=== PATIENT | female | born 1940 | race Caucasian/White ===

== ENCOUNTER 2023-06-13 16:23 | Emergency (ER) | payer MEDICARE ==
[~2023-06-13] VITALS: Ht 167.6 cm; Wt 92.1 kg
[~2023-06-13 16:23] MED LIST: BISM262T15 PO; CETI5TAB8 PO; DICY20TA32 PO; DIPH50CA37 PO; ESCI20TA PO; FLUO40CA8 PO; HYDR-3980 PO; LEVO137T PO; LORA1TAB PO; METO50TA7 PO; MG T1TAB4 PO; PANT40TA2 PO; [UNRECOGNIZED DRUG - CODE] PO
[2023-06-13 17:52] LABS: BASOPHILS % (AUTO) 0.4 % (0.0-2.0); EOSINOPHILS # (AUTO) 0.2 K/uL (0.0-0.7); EOSINOPHILS % (AUTO) 2.2 % (0.0-6.0); HEMATOCRIT 34 % (33-45); HEMOGLOBIN 10.7 g/dL (11.5-14.8); LYMPHOCYTES % (AUTO) 26.2 % (20.0-44.0); MEAN CORPUSCULAR HEMOGLOBIN 25 PG (26.0-33.0); MEAN CORPUSCULAR HGB CONC 32 g/dl (31.0-36.0); MEAN CORPUSCULAR VOLUME 79 fL (82-100); MONOCYTES # (AUTO) 0.8 K/uL (0.1-1.30); MONOCYTES % (AUTO) 10.5 % (2.0-12.0); NEUTROPHILS # (AUTO) 4.6 K/uL (1.8-8.9); NEUTROPHILS % (AUTO) 60.7 % (43.0-81.0); PLATELET COUNT (AUTO) 288 K/uL (150-450); RED BLOOD CELL COUNT(AUTO) 4.31 MIL/uL (4.0-5.2); RED CELL DISTRIBUTION WIDTH 15.4 % (11.5-15.0); WHITE BLOOD COUNT (AUTO) 7.7 K/uL (4.3-11.0)
[2023-06-13 18:08] LABS: INR 0.95 (0.91-1.10); PARTIAL THROMBOPLASTIN TIME 27.5 SEC (24.3-34.3); PROTHROMBIN TIME 10.1 SECS (9.2-11.1)
[2023-06-13 18:19] LABS: CALCIUM, SERUM 9.3 mg/dL (8.5-10.1); CREATININE 1.2 mg/dL (0.6-1.3); POTASSIUM 4.4 mmol/L (3.5-5.1)
[2023-06-13] MEDS ORDERED: OXYM15MI4 NS (18:49)
[2023-06-13 19:07] VITALS: BP 121/69; TEMP 97.9; O2SAT 98
== END 2023-06-13 19:08 | disposition home or self-care (01) ==
LOC: ER 16:26
DX: S09.90XA Unspecified injury of head, initial encounter (principal); R04.0 Epistaxis; I10 Essential (primary) hypertension; M79.7 Fibromyalgia; K21.9 Gastro-esophageal reflux disease without esophagitis; F41.9 Anxiety disorder, unspecified; F31.9 Bipolar disorder, unspecified; E03.9 Hypothyroidism, unspecified; Z88.8 Allergy status to other drugs, medicaments and biological substances; Z79.899 Other long term (current) drug therapy; W18.30XA Fall on same level, unspecified, initial encounter; Y93.89 Activity, other specified; Y92.89 Other specified places as the place of occurrence of the external cause; Y99.8 Other external cause status
CPT/HCPCS: 36415; 70450-TC; 70486-TC; 72125-TC; 80048-TC; 85025-TC; 85730-TC; 86850-TC

== ENCOUNTER 2023-07-02 09:37 | Inpatient (IN) | payer MEDICARE ==
[~2023-07-02] VITALS: Ht 167.6 cm; Wt 84.8 kg
[~2023-07-02 09:37] MED LIST changes: +OXYM15MI4 NS
[2023-07-02] MEDS ORDERED: CEFTRIAXONE 1GM BAG (ER ONLY) 50 ML IV ONE ×2 (10:00→10:02)
[2023-07-02] MEDS ORDERED: AZITHROMYCIN 500 MG in IV D5W 250 ML IV ONE (10:00)
[2023-07-02] MEDS ORDERED: ALBUTEROL FS 2.5 MG/3 ML VIAL.NEB NEB ONE (10:00)
[2023-07-02] MEDS ORDERED: methylPREDNISolone SOD SUCC 125 MG/2ML VIAL IV ONE (10:00)
[2023-07-02] MEDS ORDERED: IV NS 0.9% 500 ML BAG IV ONE (10:00)
[2023-07-02] MEDS ORDERED: IPRATROPIUM NEB FS 0.5 MG/2.5 ML AMPUL.NEB NEB ONE (10:00)
[2023-07-02] MEDS ORDERED: ACETAMINOPHEN ES 500 MG TABLET PO ONE (10:00)
[2023-07-02] MEDS ORDERED: methylPREDNISolone SOD SUCC 125 MG/2ML VIAL ONE (10:02)
[2023-07-02] MEDS ORDERED: ACETAMINOPHEN ES 500 MG TABLET ONE (10:02)
[2023-07-02] MEDS ORDERED: ATOR80TA PO (10:35)
[2023-07-02] MEDS ORDERED: ASPI-1169 PO (10:35)
[2023-07-02] MEDS ORDERED: HYDR-4303 PO (10:35)
[2023-07-02] MEDS ORDERED: CLOP75TA15 PO (10:35)
[2023-07-02 10:52] LABS: CARBON DIOXIDE 22 mmol/L (21-32); CHLORIDE 94 mmol/L (98-107); CREATININE 2.7 mg/dL (0.6-1.3); GLUCOSE 118 mg/dL (74-106); POTASSIUM 3.8 mmol/L (3.5-5.1); SODIUM SERUM 129 mmol/L (136-145); UREA NITROGEN, BLOOD 38 mg/dL (7-18)
[2023-07-02 11:03] LABS: LACTIC ACID 1.7 mmol/L (0.4-2.0)
[2023-07-02 11:06] LABS: INR 1.08 (0.91-1.10); PARTIAL THROMBOPLASTIN TIME 31.9 SEC (24.3-34.3); PROTHROMBIN TIME 11.4 SECS (9.2-11.1)
[2023-07-02 11:07] LABS: ALANINE AMINOTRANSFERASE 70 U/L (12-78); ALKALINE PHOSPHATASE 159 U/L (46-116); ASPARTATE AMINOTRANSFERASE 182 U/L (15-37); BILIRUBIN,DIRECT 0.2 mg/dL (0.0-0.2); BILIRUBIN,TOTAL 0.3 mg/dL (0.2-1.0); NT-PRO BNP 4520 pg/mL (0-125); TOTAL PROTEIN, SERUM 7.6 g/dL (6.4-8.2)
[2023-07-02 11:29] LABS: BASOPHILS # (AUTO) 0.1 K/uL (0.0-0.2); BASOPHILS % (AUTO) 1.1 % (0.0-2.0); EOSINOPHILS % (AUTO) 0.1 % (0.0-6.0); HEMATOCRIT 30 % (33-45); HEMOGLOBIN 9.6 g/dL (11.5-14.8); LYMPHOCYTES # (AUTO) 0.6 K/uL (0.8-4.8); LYMPHOCYTES % (AUTO) 4.3 % (20.0-44.0); MEAN CORPUSCULAR HEMOGLOBIN 24 PG (26.0-33.0); MEAN CORPUSCULAR HGB CONC 32 g/dl (31.0-36.0); MEAN CORPUSCULAR VOLUME 76 fL (82-100); MONOCYTES # (AUTO) 0.6 K/uL (0.1-1.30); MONOCYTES % (AUTO) 4.6 % (2.0-12.0); NEUTROPHILS # (AUTO) 11.8 K/uL (1.8-8.9); NEUTROPHILS % (AUTO) 89.9 % (43.0-81.0); PLATELET COUNT (AUTO) 268 K/uL (150-450); RED BLOOD CELL COUNT(AUTO) 3.94 MIL/uL (4.0-5.2); RED CELL DISTRIBUTION WIDTH 16.5 % (11.5-15.0); WHITE BLOOD COUNT (AUTO) 13.1 K/uL (4.3-11.0)
[2023-07-02] MEDS ORDERED: IPRATROPIUM NEB FS 0.5 MG/2.5 ML AMPUL.NEB ONE ×2 (12:01→15:22)
[2023-07-02] MEDS ORDERED: ALBUTEROL FS 2.5 MG/3 ML VIAL.NEB ONE ×2 (12:01→15:22)
[2023-07-02 12:05] VITALS: O2SAT 92
[2023-07-02 12:19] VITALS: O2SAT 98
[2023-07-02] MEDS ORDERED: CLOPIDOGREL BISULFATE 75 MG TABLET ONE (12:28)
[2023-07-02] MEDS ORDERED: MAGNESIUM HYDROXIDE 30 ML UDC PO PRN (12:30)
[2023-07-02] MEDS ORDERED: ACETAMINOPHEN 325 MG TABLET PO PRN (12:30)
[2023-07-02] MEDS ORDERED: Z GUARD REMEDY 4 OZ OINT TP PRN (12:30)
[2023-07-02] MEDS ORDERED: CLOPIDOGREL BISULFATE 75 MG TABLET PO ONE (12:30)
[2023-07-02] MEDS ORDERED: ONDANSETRON HCL/PF 4 MG/2 ML VIAL IVP PRN (12:30)
[2023-07-02] MEDS: methylPREDNISolone SOD SUCC 40 MG/ML VIAL IV SCH ×2 (13:00→17:58)
[2023-07-02] MEDS ORDERED: IPRATROPIUM NEB FS 0.5 MG/2.5 ML AMPUL.NEB NEB SCH ×2 (13:00→15:00)
[2023-07-02] MEDS ORDERED: ALBUTEROL FS 2.5 MG/0.5 ML VIAL.NEB NEB SCH (13:00)
[2023-07-02] MEDS: ENOXAPARIN SODIUM 30 MG/0.3 ML DISP.SYRIN SQ SCH (13:30)
[2023-07-02] MEDS: ALBUTEROL FS 2.5 MG/0.5 ML VIAL.NEB NEB SCH ×2 (15:00→19:59)
[2023-07-02] MEDS ORDERED: methylPREDNISolone SOD SUCC 40 MG/ML VIAL ONE (15:23)
[2023-07-02] MEDS ORDERED: ENOXAPARIN SODIUM 30 MG/0.3 ML DISP.SYRIN ONE (15:23)
[2023-07-02] MEDS: CEFEPIME 2 GM in IV D5W 100 ML IV SCH (15:37)
[2023-07-02] MEDS: IV NS 0.9% 1,000 ML IV PRN (17:58)
[2023-07-02 19:59] VITALS: O2SAT 92
[2023-07-02] MEDS: IPRATROPIUM NEB FS 0.5 MG/2.5 ML AMPUL.NEB NEB SCH (19:59)
[2023-07-02 20:14] VITALS: O2SAT 97
[2023-07-02] MEDS: MAG HYDROX/AL HYDROX/SIMETH 30 ML UDC PO PRN (20:54)
[2023-07-02] MEDS: ATORVASTATIN 40 MG TABLET PO SCH (21:34)
[2023-07-02] MEDS: HYDROCODONE/APAP 5/325MG TABLET PO PRN (21:44)
[2023-07-03] VITALS (14 sets, daily range): BP systolic 113–128; BP diastolic 63–79; TEMP 97.4–98.2; O2SAT 90–100
[2023-07-03] MEDS: IPRATROPIUM NEB FS 0.5 MG/2.5 ML AMPUL.NEB NEB SCH ×4 (02:10→20:10)
[2023-07-03] MEDS: ALBUTEROL FS 2.5 MG/0.5 ML VIAL.NEB NEB SCH ×4 (02:10→20:10)
[2023-07-03] MEDS: IV NS 0.9% 1,000 ML IV PRN (06:34)
[2023-07-03 06:55] LABS: BASOPHILS % (AUTO) 0.1 % (0.0-2.0); EOSINOPHILS % (AUTO) 0.1 % (0.0-6.0); HEMATOCRIT 25 % (33-45); LYMPHOCYTES # (AUTO) 0.6 K/uL (0.8-4.8); MEAN CORPUSCULAR HEMOGLOBIN 25 PG (26.0-33.0); MEAN CORPUSCULAR HGB CONC 32 g/dl (31.0-36.0); MEAN CORPUSCULAR VOLUME 76 fL (82-100); MONOCYTES # (AUTO) 0.4 K/uL (0.1-1.30); MONOCYTES % (AUTO) 3.2 % (2.0-12.0); NEUTROPHILS # (AUTO) 11.2 K/uL (1.8-8.9); NEUTROPHILS % (AUTO) 91.6 % (43.0-81.0); PLATELET COUNT (AUTO) 224 K/uL (150-450); RED BLOOD CELL COUNT(AUTO) 3.25 MIL/uL (4.0-5.2); RED CELL DISTRIBUTION WIDTH 16.7 % (11.5-15.0); WHITE BLOOD COUNT (AUTO) 12.2 K/uL (4.3-11.0)
[2023-07-03 07:41] LABS: ALANINE AMINOTRANSFERASE 58 U/L (12-78); ALBUMIN 1.6 g/dL (3.4-5.0); ALKALINE PHOSPHATASE 129 U/L (46-116); ASPARTATE AMINOTRANSFERASE 115 U/L (15-37); BILIRUBIN,TOTAL 0.2 mg/dL (0.2-1.0); CALCIUM, SERUM 8.6 mg/dL (8.5-10.1); CARBON DIOXIDE 25 mmol/L (21-32); CHLORIDE 97 mmol/L (98-107); GLUCOSE 157 mg/dL (74-106); MAGNESIUM 3.2 mg/dL (1.8-2.4); PHOSPHORUS 4.3 mg/dL (2.5-4.9); POTASSIUM 4.2 mmol/L (3.5-5.1); SODIUM SERUM 129 mmol/L (136-145); TOTAL PROTEIN, SERUM 6.4 g/dL (6.4-8.2); UREA NITROGEN, BLOOD 44 mg/dL (7-18)
[2023-07-03] MEDS: methylPREDNISolone SOD SUCC 40 MG/ML VIAL IV SCH ×3 (08:24→17:53)
[2023-07-03] MEDS: ASPIRIN 81 MG TAB.CHEW PO SCH (08:25)
[2023-07-03] MEDS: CLOPIDOGREL BISULFATE 75 MG TABLET PO SCH (08:25)
[2023-07-03] MEDS: METOPROLOL SUCCINATE 25 MG TAB.SR.24H PO SCH (08:25)
[2023-07-03] MEDS: LEVOTHYROXINE SODIUM 137 MCG TABLET PO SCH (08:26)
[2023-07-03 08:50] LABS: IRON, SERUM 12 ug/dl (50-175); TOTAL IRON BINDING CAPACITY 190 ug/dl (250-450)
[2023-07-03 09:16] LABS: FERRITIN 316 ng/mL (8-388)
[2023-07-03] MEDS: AZITHROMYCIN 500 MG in IV D5W 250 ML IV SCH (10:08)
[2023-07-03] MEDS: ENOXAPARIN SODIUM 30 MG/0.3 ML DISP.SYRIN SQ SCH (13:43)
[2023-07-03] MEDS: CEFEPIME 2 GM in IV D5W 100 ML IV SCH (15:38)
[2023-07-03] MEDS: GUAIFENESIN/D-METHORPHAN HB 5 ML UDC PO PRN (20:43)
[2023-07-03] MEDS ORDERED: TAMSULOSIN 0.4 MG CAP.SR.24H PO SCH (22:00)
[2023-07-03] MEDS: ATORVASTATIN 40 MG TABLET PO SCH (22:02)
[2023-07-04] VITALS (17 sets, daily range): BP systolic 123–146; BP diastolic 57–88; TEMP 96.5–97.6; O2SAT 80–99
[2023-07-04] MEDS: HYDROCODONE/APAP 5/325MG TABLET PO PRN (00:03)
[2023-07-04] MEDS: ALBUTEROL FS 2.5 MG/0.5 ML VIAL.NEB NEB SCH ×4 (02:03→19:16)
[2023-07-04] MEDS: IPRATROPIUM NEB FS 0.5 MG/2.5 ML AMPUL.NEB NEB SCH ×4 (02:03→19:15)
[2023-07-04] MEDS: IV NS 0.9% 1,000 ML IV PRN ×2 (03:29→23:55)
[2023-07-04 07:14] LABS: HEMATOCRIT 26 % (33-45); HEMOGLOBIN 8.1 g/dL (11.5-14.8); LYMPHOCYTES # (AUTO) 0.5 K/uL (0.8-4.8); LYMPHOCYTES % (AUTO) 3.1 % (20.0-44.0); MEAN CORPUSCULAR HEMOGLOBIN 24 PG (26.0-33.0); MEAN CORPUSCULAR HGB CONC 31 g/dl (31.0-36.0); MEAN CORPUSCULAR VOLUME 76 fL (82-100); MONOCYTES # (AUTO) 0.6 K/uL (0.1-1.30); MONOCYTES % (AUTO) 3.9 % (2.0-12.0); NEUTROPHILS # (AUTO) 15.6 K/uL (1.8-8.9); PLATELET COUNT (AUTO) 317 K/uL (150-450); RED BLOOD CELL COUNT(AUTO) 3.37 MIL/uL (4.0-5.2); RED CELL DISTRIBUTION WIDTH 17.2 % (11.5-15.0); WHITE BLOOD COUNT (AUTO) 16.7 K/uL (4.3-11.0)
[2023-07-04 07:46] LABS: CREATINE KINASE, TOTAL 337 U/L (26-192)
[2023-07-04 07:55] LABS: ALANINE AMINOTRANSFERASE 56 U/L (12-78); ALBUMIN 1.7 g/dL (3.4-5.0); ALKALINE PHOSPHATASE 122 U/L (46-116); ASPARTATE AMINOTRANSFERASE 95 U/L (15-37); BILIRUBIN,TOTAL 0.2 mg/dL (0.2-1.0); CALCIUM, SERUM 8.8 mg/dL (8.5-10.1); CARBON DIOXIDE 23 mmol/L (21-32); CHLORIDE 98 mmol/L (98-107); CREATININE 1.7 mg/dL (0.6-1.3); GLUCOSE 146 mg/dL (74-106); MAGNESIUM 3.1 mg/dL (1.8-2.4); PHOSPHORUS 2.9 mg/dL (2.5-4.9); POTASSIUM 4.1 mmol/L (3.5-5.1); SODIUM SERUM 130 mmol/L (136-145); TOTAL PROTEIN, SERUM 6.4 g/dL (6.4-8.2); UREA NITROGEN, BLOOD 40 mg/dL (7-18)
[2023-07-04] MEDS: ASPIRIN 81 MG TAB.CHEW PO SCH (08:47)
[2023-07-04] MEDS: METOPROLOL SUCCINATE 25 MG TAB.SR.24H PO SCH (08:47)
[2023-07-04] MEDS: LEVOTHYROXINE SODIUM 137 MCG TABLET PO SCH (08:48)
[2023-07-04] MEDS: CLOPIDOGREL BISULFATE 75 MG TABLET PO SCH (08:48)
[2023-07-04] MEDS: methylPREDNISolone SOD SUCC 40 MG/ML VIAL IV SCH ×2 (08:48→09:06)
[2023-07-04] MEDS: AZITHROMYCIN 500 MG in IV D5W 250 ML IV SCH (09:06)
[2023-07-04] MEDS ORDERED: ALPRAZOLAM 0.25 MG TABLET PO PRN (09:30)
[2023-07-04] MEDS: MAG HYDROX/AL HYDROX/SIMETH 30 ML UDC PO PRN (11:26)
[2023-07-04] MEDS ORDERED: MENTHOL/CETYLPYRD (CEPACOL) 1 LOZ LOZENGE PO PRN (14:30)
[2023-07-04] MEDS: ENOXAPARIN SODIUM 30 MG/0.3 ML DISP.SYRIN SQ SCH (14:56)
[2023-07-04] MEDS: CEFEPIME 2 GM in IV D5W 100 ML IV SCH (15:10)
[2023-07-04] MEDS: BENZONATATE 100 MG CAPSULE PO SCH (16:10)
[2023-07-04] MEDS ORDERED: OLANZAPINE 10 MG VIAL IM ONE ×2 (21:30→23:39)
[2023-07-04] MEDS: ATORVASTATIN 40 MG TABLET PO SCH (22:00)
[2023-07-05] VITALS (39 sets, daily range): BP systolic 81–165; BP diastolic 32–148; TEMP 97.1–98.1; O2SAT 78–100
[2023-07-05] MEDS: ALBUTEROL FS 2.5 MG/0.5 ML VIAL.NEB NEB SCH ×4 (01:06→19:32)
[2023-07-05] MEDS: IPRATROPIUM NEB FS 0.5 MG/2.5 ML AMPUL.NEB NEB SCH ×4 (01:06→19:32)
[2023-07-05 03:07] LABS: PTH, INTACT 53 pg/mL (15-65)
[2023-07-05 03:46] LABS: BASOPHILS % (AUTO) 0.2 % (0.0-2.0); HEMATOCRIT 26 % (33-45); HEMOGLOBIN 8.1 g/dL (11.5-14.8); LYMPHOCYTES # (AUTO) 0.6 K/uL (0.8-4.8); LYMPHOCYTES % (AUTO) 2.9 % (20.0-44.0); MEAN CORPUSCULAR HEMOGLOBIN 24 PG (26.0-33.0); MEAN CORPUSCULAR HGB CONC 31 g/dl (31.0-36.0); MEAN CORPUSCULAR VOLUME 77 fL (82-100); MONOCYTES # (AUTO) 1.4 K/uL (0.1-1.30); MONOCYTES % (AUTO) 6.8 % (2.0-12.0); NEUTROPHILS # (AUTO) 19.1 K/uL (1.8-8.9); NEUTROPHILS % (AUTO) 90.1 % (43.0-81.0); PLATELET COUNT (AUTO) 402 K/uL (150-450); RED BLOOD CELL COUNT(AUTO) 3.39 MIL/uL (4.0-5.2); RED CELL DISTRIBUTION WIDTH 17.4 % (11.5-15.0); WHITE BLOOD COUNT (AUTO) 21.2 K/uL (4.3-11.0)
[2023-07-05 04:20] LABS: CALCIUM, SERUM 8.7 mg/dL (8.5-10.1); CARBON DIOXIDE 24 mmol/L (21-32); CHLORIDE 100 mmol/L (98-107); CREATININE 1.4 mg/dL (0.6-1.3); GLUCOSE 160 mg/dL (74-106); PHOSPHORUS 3.5 mg/dL (2.5-4.9); POTASSIUM 4.4 mmol/L (3.5-5.1); SODIUM SERUM 132 mmol/L (136-145); UREA NITROGEN, BLOOD 43 mg/dL (7-18)
[2023-07-05] MEDS: LEVOTHYROXINE SODIUM 137 MCG TABLET PO SCH (07:21)
[2023-07-05] MEDS: ASPIRIN 81 MG TAB.CHEW PO SCH (08:43)
[2023-07-05] MEDS: CLOPIDOGREL BISULFATE 75 MG TABLET PO SCH (08:43)
[2023-07-05] MEDS: BENZONATATE 100 MG CAPSULE PO SCH ×3 (08:46→17:00)
[2023-07-05] MEDS: METOPROLOL SUCCINATE 25 MG TAB.SR.24H PO SCH (08:46)
[2023-07-05] MEDS: methylPREDNISolone SOD SUCC 40 MG/ML VIAL IV SCH (08:50)
[2023-07-05] MEDS ORDERED: VANCOMYCIN 1 GM in IV D5W 250 ML IV ONE (09:00)
[2023-07-05] MEDS: AZITHROMYCIN 500 MG in IV D5W 250 ML IV SCH (10:54)
[2023-07-05] MEDS: ENOXAPARIN SODIUM 30 MG/0.3 ML DISP.SYRIN SQ SCH (14:11)
[2023-07-05] MEDS: SOD FERRIC GLUC 125 MG in IV NS 0.9% 100 ML IV SCH (14:40)
[2023-07-05] MEDS: CEFEPIME 2 GM in IV D5W 100 ML IV SCH (18:29)
[2023-07-05] MEDS: ATORVASTATIN 40 MG TABLET PO SCH (22:00)
[2023-07-06] VITALS (47 sets, daily range): BP systolic 110–149; BP diastolic 62–88; TEMP 97.3–98.1; O2SAT 79–100
[2023-07-06] MEDS: ALBUTEROL FS 2.5 MG/0.5 ML VIAL.NEB NEB SCH ×4 (01:11→19:27)
[2023-07-06] MEDS: IPRATROPIUM NEB FS 0.5 MG/2.5 ML AMPUL.NEB NEB SCH ×4 (01:11→19:27)
[2023-07-06 04:30] LABS: HEMATOCRIT 22 % (33-45); LYMPHOCYTES # (AUTO) 0.8 K/uL (0.8-4.8); LYMPHOCYTES % (AUTO) 5.1 % (20.0-44.0); MEAN CORPUSCULAR HEMOGLOBIN 24 PG (26.0-33.0); MEAN CORPUSCULAR HGB CONC 32 g/dl (31.0-36.0); MEAN CORPUSCULAR VOLUME 76 fL (82-100); MONOCYTES # (AUTO) 0.9 K/uL (0.1-1.30); MONOCYTES % (AUTO) 5.7 % (2.0-12.0); NEUTROPHILS # (AUTO) 13.5 K/uL (1.8-8.9); NEUTROPHILS % (AUTO) 89.2 % (43.0-81.0); PLATELET COUNT (AUTO) 367 K/uL (150-450); RED BLOOD CELL COUNT(AUTO) 2.85 MIL/uL (4.0-5.2); RED CELL DISTRIBUTION WIDTH 17.2 % (11.5-15.0); WHITE BLOOD COUNT (AUTO) 15.2 K/uL (4.3-11.0)
[2023-07-06 04:36] LABS: HEMOGLOBIN 6.9 g/dL (11.5-14.8)
[2023-07-06 04:41] LABS: ALANINE AMINOTRANSFERASE 50 U/L (12-78); ALBUMIN 1.6 g/dL (3.4-5.0); ALKALINE PHOSPHATASE 107 U/L (46-116); ASPARTATE AMINOTRANSFERASE 75 U/L (15-37); BILIRUBIN,DIRECT 0.1 mg/dL (0.0-0.2); BILIRUBIN,TOTAL 0.3 mg/dL (0.2-1.0); CALCIUM, SERUM 8.4 mg/dL (8.5-10.1); CARBON DIOXIDE 24 mmol/L (21-32); CHLORIDE 105 mmol/L (98-107); CREATININE 1.2 mg/dL (0.6-1.3); GLUCOSE 107 mg/dL (74-106); MAGNESIUM 2.9 mg/dL (1.8-2.4); PHOSPHORUS 2.4 mg/dL (2.5-4.9); POTASSIUM 4.2 mmol/L (3.5-5.1); SODIUM SERUM 137 mmol/L (136-145); TOTAL PROTEIN, SERUM 5.8 g/dL (6.4-8.2); UREA NITROGEN, BLOOD 45 mg/dL (7-18)
[2023-07-06 05:12] LABS: *SPE A/G RATIO 0.5 (0.7-1.7); *SPE ALBUMIN 1.8 g/dL (2.9-4.4); *SPE ALPHA-1-GLOBULIN 0.5 g/dL (0.0-0.4); *SPE ALPHA-2-GLOBULIN 1.5 g/dL (0.4-1.0); *SPE BETA GLOBULIN 0.8 g/dL (0.7-1.3); *SPE GLOBULIN, TOTAL 3.8 g/dL (2.2-3.9); *SPE M-SPIKE Not Observed g/dL (Not Observed); *SPE PROTEIN TOTAL 5.6 g/dL (6.0-8.5)
[2023-07-06 05:50] LABS: LYMPHOCYTES % (MANUAL) 9 % (16-48); MONOCYTES % (MANUAL) 6 % (0-11.0); NEUTROPHILS % (MANUAL) 85 (42-76)
[2023-07-06 05:51] LABS: ANISOCYTOSIS 1+; PLATELET ESTIMATE ADEQUATE
[2023-07-06] MEDS: LEVOTHYROXINE SODIUM 137 MCG TABLET PO SCH (07:30)
[2023-07-06] MEDS: ASPIRIN 81 MG TAB.CHEW PO SCH (09:00)
[2023-07-06] MEDS: BENZONATATE 100 MG CAPSULE PO SCH ×3 (09:00→16:52)
[2023-07-06] MEDS: METOPROLOL SUCCINATE 25 MG TAB.SR.24H PO SCH (09:00)
[2023-07-06] MEDS ORDERED: VANCOMYCIN 0.75 GM in IV D5W 250 ML IV SCH (09:00)
[2023-07-06] MEDS: CLOPIDOGREL BISULFATE 75 MG TABLET PO SCH (09:00)
[2023-07-06] MEDS ORDERED: FUROSEMIDE 20 MG/2 ML VIAL IV ONE (09:00)
[2023-07-06] MEDS: methylPREDNISolone SOD SUCC 40 MG/ML VIAL IV SCH (09:31)
[2023-07-06] MEDS: AZITHROMYCIN 500 MG in IV D5W 250 ML IV SCH (10:41)
[2023-07-06] MEDS: PANTOPRAZOLE 40 MG VIAL IV SCH ×2 (10:51→21:10)
[2023-07-06] MEDS ORDERED: Sodium Phosphate 15 MMOL in IV NS 0.9% 245 ML IV SCH (14:00)
[2023-07-06] MEDS: CEFEPIME 2 GM in IV D5W 100 ML IV SCH (15:09)
[2023-07-06] MEDS: SOD FERRIC GLUC 125 MG in IV NS 0.9% 100 ML IV SCH (15:34)
[2023-07-06 16:57] LABS: HIV-1 p24 ANTIGEN NON REACTIVE (NONREACTIVE); HIV-1/2 ANTIBODY NON REACTIVE (NONREACTIVE)
[2023-07-06 17:39] LABS: HEMOGLOBIN 8.8 g/dL (11.5-14.8)
[2023-07-06] MEDS: ATORVASTATIN 40 MG TABLET PO SCH (21:11)
[2023-07-07] VITALS (46 sets, daily range): BP systolic 114–145; BP diastolic 56–80; TEMP 97.6–98.4; O2SAT 95–100
[2023-07-07] MEDS: IPRATROPIUM NEB FS 0.5 MG/2.5 ML AMPUL.NEB NEB SCH ×4 (01:41→19:56)
[2023-07-07] MEDS: ALBUTEROL FS 2.5 MG/0.5 ML VIAL.NEB NEB SCH ×4 (01:42→19:56)
[2023-07-07 04:45] LABS: BASOPHILS # (AUTO) 0.1 K/uL (0.0-0.2); BASOPHILS % (AUTO) 0.9 % (0.0-2.0); EOSINOPHILS % (AUTO) 0.1 % (0.0-6.0); HEMATOCRIT 21 % (33-45); LYMPHOCYTES # (AUTO) 0.7 K/uL (0.8-4.8); MEAN CORPUSCULAR HEMOGLOBIN 30 PG (26.0-33.0); MEAN CORPUSCULAR HGB CONC 32 g/dl (31.0-36.0); MEAN CORPUSCULAR VOLUME 94 fL (82-100); MONOCYTES # (AUTO) 0.4 K/uL (0.1-1.30); NEUTROPHILS # (AUTO) 10.8 K/uL (1.8-8.9); PLATELET COUNT (AUTO) 57 K/uL (150-450); RED BLOOD CELL COUNT(AUTO) 2.18 MIL/uL (4.0-5.2); RED CELL DISTRIBUTION WIDTH 23.7 % (11.5-15.0)
[2023-07-07 04:46] LABS: OCCULT BLOOD STOOL POSITIVE (NEGATIVE)
[2023-07-07 04:48] LABS: HEMOGLOBIN 6.5 g/dL (11.5-14.8)
[2023-07-07 04:59] LABS: CALCIUM, SERUM 8.3 mg/dL (8.5-10.1); CARBON DIOXIDE 26 mmol/L (21-32); CHLORIDE 104 mmol/L (98-107); CREATININE 1.8 mg/dL (0.6-1.3); GLUCOSE 145 mg/dL (74-106); PHOSPHORUS 2.7 mg/dL (2.5-4.9); POTASSIUM 3.2 mmol/L (3.5-5.1); SODIUM SERUM 138 mmol/L (136-145); UREA NITROGEN, BLOOD 19 mg/dL (7-18)
[2023-07-07 06:06] LABS: LYMPHOCYTES % (MANUAL) 6 % (16-48); MONOCYTES % (MANUAL) 1 % (0-11.0); NEUTROPHILS % (MANUAL) 93 (42-76)
[2023-07-07 06:07] LABS: ANISOCYTOSIS 1+; PLATELET ESTIMATE DECRE
[2023-07-07] MEDS: LEVOTHYROXINE SODIUM 137 MCG TABLET PO SCH (07:30)
[2023-07-07] MEDS: POTASSIUM CL. PREMIX PERIPHER. 50 ML IV SCH ×4 (07:41→12:35)
[2023-07-07] MEDS: METOPROLOL SUCCINATE 25 MG TAB.SR.24H PO SCH (09:00)
[2023-07-07] MEDS: BENZONATATE 100 MG CAPSULE PO SCH ×3 (09:00→16:46)
[2023-07-07] MEDS: PANTOPRAZOLE 40 MG VIAL IV SCH ×2 (09:56→21:09)
[2023-07-07] MEDS: methylPREDNISolone SOD SUCC 40 MG/ML VIAL IV SCH (09:56)
[2023-07-07] MEDS: VANCOMYCIN 1 GM in IV D5W 250 ML IV SCH (09:58)
[2023-07-07 12:41] LABS: BASOPHILS % (AUTO) 0.1 % (0.0-2.0); EOSINOPHILS % (AUTO) 0.1 % (0.0-6.0); HEMATOCRIT 31 % (33-45); HEMOGLOBIN 9.7 g/dL (11.5-14.8); LYMPHOCYTES # (AUTO) 0.5 K/uL (0.8-4.8); LYMPHOCYTES % (AUTO) 3.3 % (20.0-44.0); MEAN CORPUSCULAR HEMOGLOBIN 26 PG (26.0-33.0); MEAN CORPUSCULAR HGB CONC 32 g/dl (31.0-36.0); MEAN CORPUSCULAR VOLUME 81 fL (82-100); MONOCYTES # (AUTO) 0.8 K/uL (0.1-1.30); MONOCYTES % (AUTO) 5.4 % (2.0-12.0); NEUTROPHILS # (AUTO) 12.9 K/uL (1.8-8.9); NEUTROPHILS % (AUTO) 91.1 % (43.0-81.0); PLATELET COUNT (AUTO) 392 K/uL (150-450); RED CELL DISTRIBUTION WIDTH 17.6 % (11.5-15.0); WHITE BLOOD COUNT (AUTO) 14.2 K/uL (4.3-11.0)
[2023-07-07 13:47] LABS: ABG BASE EXCESS -1.7 mmol/L; ABG OXYGEN SATURATION 86.9 % (92.0-98.5); ABG PH 7.433 (7.350-7.450); ABG PO2 55.2 mmHg (75.0-100.0); ABG TOTAL HEMOGLOBIN 9.1 G/dL (12.0-16.0); AaDO2 623.8 mmHg; COHb 0.8 % (0.5-1.5); MetHb 0.3 % (0.0-1.5); O2Hb 85.9 % (94.0-97.0); SITE, ABG Left Radial; VENT MODE, BG HFNC 40 L 100%
[2023-07-07] MEDS: CEFEPIME 2 GM in IV D5W 100 ML IV SCH (15:08)
[2023-07-07] MEDS: SOD FERRIC GLUC 125 MG in IV NS 0.9% 100 ML IV SCH (15:57)
[2023-07-07] MEDS: ATORVASTATIN 40 MG TABLET PO SCH (21:09)
[2023-07-08] VITALS (35 sets, daily range): BP systolic 132–153; BP diastolic 56–85; TEMP 97.6–98.7; O2SAT 89–99
[2023-07-08] MEDS: ALBUTEROL FS 2.5 MG/0.5 ML VIAL.NEB NEB SCH ×4 (01:42→19:54)
[2023-07-08] MEDS: IPRATROPIUM NEB FS 0.5 MG/2.5 ML AMPUL.NEB NEB SCH ×4 (01:42→19:54)
[2023-07-08 04:10] LABS: BASOPHILS % (AUTO) 0.1 % (0.0-2.0); EOSINOPHILS % (AUTO) 0.2 % (0.0-6.0); HEMATOCRIT 29 % (33-45); HEMOGLOBIN 9.1 g/dL (11.5-14.8); LYMPHOCYTES # (AUTO) 0.7 K/uL (0.8-4.8); LYMPHOCYTES % (AUTO) 5.3 % (20.0-44.0); MEAN CORPUSCULAR HEMOGLOBIN 25 PG (26.0-33.0); MEAN CORPUSCULAR HGB CONC 32 g/dl (31.0-36.0); MEAN CORPUSCULAR VOLUME 80 fL (82-100); MONOCYTES % (AUTO) 7.8 % (2.0-12.0); NEUTROPHILS # (AUTO) 11.1 K/uL (1.8-8.9); NEUTROPHILS % (AUTO) 86.6 % (43.0-81.0); PLATELET COUNT (AUTO) 412 K/uL (150-450); RED BLOOD CELL COUNT(AUTO) 3.59 MIL/uL (4.0-5.2); RED CELL DISTRIBUTION WIDTH 17.5 % (11.5-15.0); WHITE BLOOD COUNT (AUTO) 12.8 K/uL (4.3-11.0)
[2023-07-08 04:20] LABS: ALANINE AMINOTRANSFERASE 45 U/L (12-78); ALBUMIN 1.8 g/dL (3.4-5.0); ALKALINE PHOSPHATASE 102 U/L (46-116); ASPARTATE AMINOTRANSFERASE 40 U/L (15-37); BILIRUBIN,DIRECT 0.2 mg/dL (0.0-0.2); BILIRUBIN,TOTAL 0.5 mg/dL (0.2-1.0); CALCIUM, SERUM 8.5 mg/dL (8.5-10.1); CARBON DIOXIDE 28 mmol/L (21-32); CHLORIDE 107 mmol/L (98-107); CREATININE 1.3 mg/dL (0.6-1.3); GLUCOSE 99 mg/dL (74-106); MAGNESIUM 2.5 mg/dL (1.8-2.4); PHOSPHORUS 2.8 mg/dL (2.5-4.9); POTASSIUM 4.3 mmol/L (3.5-5.1); SODIUM SERUM 141 mmol/L (136-145); TOTAL PROTEIN, SERUM 5.9 g/dL (6.4-8.2); UREA NITROGEN, BLOOD 41 mg/dL (7-18)
[2023-07-08 05:24] LABS: BAND % (MANUAL) 1 % (0.0-5.0); LYMPHOCYTES % (MANUAL) 8 % (16-48); MONOCYTES % (MANUAL) 9 % (0-11.0); NEUTROPHILS % (MANUAL) 82 (42-76); PLATELET ESTIMATE ADEQUATE
[2023-07-08 05:25] LABS: ANISOCYTOSIS 1+; OVALOCYTES 1+
[2023-07-08] MEDS: LEVOTHYROXINE SODIUM 137 MCG TABLET PO SCH (07:30)
[2023-07-08] MEDS: PANTOPRAZOLE 40 MG VIAL IV SCH ×2 (08:49→20:59)
[2023-07-08] MEDS: methylPREDNISolone SOD SUCC 40 MG/ML VIAL IV SCH (08:50)
[2023-07-08] MEDS: BENZONATATE 100 MG CAPSULE PO SCH ×3 (09:00→16:08)
[2023-07-08] MEDS: VANCOMYCIN 1 GM in IV D5W 250 ML IV SCH (09:42)
[2023-07-08] MEDS: METOPROLOL SUCCINATE 25 MG TAB.SR.24H PO SCH (10:16)
[2023-07-08] MEDS: CEFEPIME 2 GM in IV D5W 100 ML IV SCH (14:22)
[2023-07-08] MEDS: SOD FERRIC GLUC 125 MG in IV NS 0.9% 100 ML IV SCH (16:20)
[2023-07-08] MEDS: ATORVASTATIN 40 MG TABLET PO SCH (22:37)
[2023-07-09] VITALS (13 sets, daily range): BP systolic 119–159; BP diastolic 70–77; TEMP 97.4–98.7; O2SAT 92–98
[2023-07-09] MEDS: ALBUTEROL FS 2.5 MG/0.5 ML VIAL.NEB NEB SCH ×4 (02:04→19:55)
[2023-07-09] MEDS: IPRATROPIUM NEB FS 0.5 MG/2.5 ML AMPUL.NEB NEB SCH ×4 (02:04→19:55)
[2023-07-09 08:09] LABS: BASOPHILS % (AUTO) 0.3 % (0.0-2.0); EOSINOPHILS % (AUTO) 0.2 % (0.0-6.0); HEMATOCRIT 31 % (33-45); LYMPHOCYTES # (AUTO) 0.7 K/uL (0.8-4.8); LYMPHOCYTES % (AUTO) 5.4 % (20.0-44.0); MEAN CORPUSCULAR HEMOGLOBIN 26 PG (26.0-33.0); MEAN CORPUSCULAR HGB CONC 32 g/dl (31.0-36.0); MEAN CORPUSCULAR VOLUME 82 fL (82-100); MONOCYTES # (AUTO) 1.2 K/uL (0.1-1.30); MONOCYTES % (AUTO) 9.3 % (2.0-12.0); NEUTROPHILS # (AUTO) 11.1 K/uL (1.8-8.9); NEUTROPHILS % (AUTO) 84.8 % (43.0-81.0); PLATELET COUNT (AUTO) 447 K/uL (150-450); RED BLOOD CELL COUNT(AUTO) 3.77 MIL/uL (4.0-5.2); RED CELL DISTRIBUTION WIDTH 18.1 % (11.5-15.0); WHITE BLOOD COUNT (AUTO) 13.1 K/uL (4.3-11.0)
[2023-07-09] MEDS: BENZONATATE 100 MG CAPSULE PO SCH ×3 (08:29→16:26)
[2023-07-09] MEDS: LEVOTHYROXINE SODIUM 137 MCG TABLET PO SCH (08:29)
[2023-07-09] MEDS: PANTOPRAZOLE 40 MG VIAL IV SCH ×2 (08:30→21:25)
[2023-07-09] MEDS: METOPROLOL SUCCINATE 25 MG TAB.SR.24H PO SCH (08:30)
[2023-07-09] MEDS: methylPREDNISolone SOD SUCC 40 MG/ML VIAL IV SCH (08:30)
[2023-07-09 08:58] LABS: CALCIUM, SERUM 8.7 mg/dL (8.5-10.1); CARBON DIOXIDE 23 mmol/L (21-32); CHLORIDE 107 mmol/L (98-107); CREATININE 1.3 mg/dL (0.6-1.3); GLUCOSE 97 mg/dL (74-106); MAGNESIUM 2.4 mg/dL (1.8-2.4); PHOSPHORUS 2.7 mg/dL (2.5-4.9); POTASSIUM 4.1 mmol/L (3.5-5.1); SODIUM SERUM 142 mmol/L (136-145); UREA NITROGEN, BLOOD 42 mg/dL (7-18)
[2023-07-09] MEDS: VANCOMYCIN 1 GM in IV D5W 250 ML IV SCH (09:51)
[2023-07-09 10:50] LABS: ANISOCYTOSIS 1+; BASOPHILS % (MANUAL) 0 % (0.0-2.0); EOSINOPHILS % (MANUAL) 0 % (0-4); LYMPHOCYTES % (MANUAL) 10 % (16-48); MONOCYTES % (MANUAL) 6 % (0-11.0); NEUTROPHILS % (MANUAL) 84 (42-76); PLATELET ESTIMATE ADEQUATE
[2023-07-09] MEDS: SOD FERRIC GLUC 125 MG in IV NS 0.9% 100 ML IV SCH (14:38)
[2023-07-09] MEDS: CEFEPIME 2 GM in IV D5W 100 ML IV SCH (16:09)
[2023-07-09] MEDS: ATORVASTATIN 40 MG TABLET PO SCH (21:25)
[2023-07-10] VITALS (13 sets, daily range): BP systolic 131–159; BP diastolic 53–86; TEMP 97.3–98.6; O2SAT 94–98
[2023-07-10] MEDS: IPRATROPIUM NEB FS 0.5 MG/2.5 ML AMPUL.NEB NEB SCH ×4 (01:55→20:18)
[2023-07-10] MEDS: ALBUTEROL FS 2.5 MG/0.5 ML VIAL.NEB NEB SCH ×4 (01:55→20:18)
[2023-07-10 07:02] LABS: BASOPHILS % (AUTO) 0.1 % (0.0-2.0); EOSINOPHILS % (AUTO) 0.3 % (0.0-6.0); HEMATOCRIT 30 % (33-45); HEMOGLOBIN 9.6 g/dL (11.5-14.8); LYMPHOCYTES # (AUTO) 0.7 K/uL (0.8-4.8); LYMPHOCYTES % (AUTO) 5.4 % (20.0-44.0); MEAN CORPUSCULAR HEMOGLOBIN 26 PG (26.0-33.0); MEAN CORPUSCULAR HGB CONC 32 g/dl (31.0-36.0); MEAN CORPUSCULAR VOLUME 82 fL (82-100); MONOCYTES # (AUTO) 1.2 K/uL (0.1-1.30); MONOCYTES % (AUTO) 8.9 % (2.0-12.0); NEUTROPHILS # (AUTO) 11.3 K/uL (1.8-8.9); NEUTROPHILS % (AUTO) 85.3 % (43.0-81.0); PLATELET COUNT (AUTO) 423 K/uL (150-450); RED BLOOD CELL COUNT(AUTO) 3.68 MIL/uL (4.0-5.2); RED CELL DISTRIBUTION WIDTH 18.4 % (11.5-15.0); WHITE BLOOD COUNT (AUTO) 13.3 K/uL (4.3-11.0)
[2023-07-10 07:19] LABS: ABG BASE EXCESS 2.9 mmol/L; ABG OXYGEN SATURATION 92.5 % (92.0-98.5); ABG PCO2 41.8 mmHg (35.0-45.0); ABG PH 7.435 (7.350-7.450); ABG PO2 62.3 mmHg (75.0-100.0); ABG TOTAL HEMOGLOBIN 10.3 G/dL (12.0-16.0); AaDO2 464.2 mmHg; COHb 0.3 % (0.5-1.5); MetHb 0.2 % (0.0-1.5); SITE, ABG Right Brachial; VENT MODE, BG HFNC 80
[2023-07-10 07:22] LABS: CALCIUM, SERUM 8.8 mg/dL (8.5-10.1); CREATININE 1.2 mg/dL (0.6-1.3); MAGNESIUM 2.1 mg/dL (1.8-2.4); PHOSPHORUS 2.8 mg/dL (2.5-4.9); POTASSIUM 3.7 mmol/L (3.5-5.1)
[2023-07-10] MEDS: BENZONATATE 100 MG CAPSULE PO SCH ×3 (08:49→16:06)
[2023-07-10] MEDS: PANTOPRAZOLE 40 MG VIAL IV SCH ×2 (08:49→21:12)
[2023-07-10] MEDS: methylPREDNISolone SOD SUCC 40 MG/ML VIAL IV SCH (08:49)
[2023-07-10] MEDS: LEVOTHYROXINE SODIUM 137 MCG TABLET PO SCH (08:49)
[2023-07-10] MEDS: METOPROLOL SUCCINATE 25 MG TAB.SR.24H PO SCH (08:51)
[2023-07-10] MEDS: ENSURE ENLIVE 237 ML LIQUID (VANILLA) PO SCH (08:52)
[2023-07-10] MEDS: VANCOMYCIN 1 GM in IV D5W 250 ML IV SCH (08:53)
[2023-07-10] MEDS: DOCUSATE SODIUM 100 MG CAPSULE PO SCH (16:06)
[2023-07-10] MEDS: CEFEPIME 2 GM in IV D5W 100 ML IV SCH (16:06)
[2023-07-10] MEDS: ATORVASTATIN 40 MG TABLET PO SCH (21:13)
[2023-07-11] VITALS (13 sets, daily range): BP systolic 137–164; BP diastolic 75–134; TEMP 97.9–99; O2SAT 92–100
[2023-07-11] MEDS: IPRATROPIUM NEB FS 0.5 MG/2.5 ML AMPUL.NEB NEB SCH ×4 (01:48→19:46)
[2023-07-11] MEDS: ALBUTEROL FS 2.5 MG/0.5 ML VIAL.NEB NEB SCH ×4 (01:48→19:46)
[2023-07-11 07:30] LABS: CALCIUM, SERUM 8.6 mg/dL (8.5-10.1); CREATININE 1.3 mg/dL (0.6-1.3); POTASSIUM 3.3 mmol/L (3.5-5.1)
[2023-07-11] MEDS: methylPREDNISolone SOD SUCC 40 MG/ML VIAL IV SCH (08:39)
[2023-07-11] MEDS: PANTOPRAZOLE 40 MG VIAL IV SCH (08:39)
[2023-07-11] MEDS: LEVOTHYROXINE SODIUM 137 MCG TABLET PO SCH (08:39)
[2023-07-11] MEDS: BENZONATATE 100 MG CAPSULE PO SCH ×3 (08:39→17:05)
[2023-07-11] MEDS: DOCUSATE SODIUM 100 MG CAPSULE PO SCH ×2 (08:40→17:05)
[2023-07-11] MEDS: METOPROLOL SUCCINATE 25 MG TAB.SR.24H PO SCH (08:40)
[2023-07-11] MEDS: ENSURE ENLIVE 237 ML LIQUID (VANILLA) PO SCH (08:40)
[2023-07-11] MEDS ORDERED: POTASSIUM CHLORIDE 20 MEQ POWDER PACKET PO ONE (11:00)
[2023-07-11] MEDS ORDERED: QUETIAPINE FUMARATE 25 MG TABLET PO PRN (12:00)
[2023-07-11 13:31] LABS: APPEARANCE,URINE TURBID (CLEAR); BILIRUBIN,URINE NEGATIVE (NEGATIVE); BLOOD, URINE 3+ Ery/uL (NEGATIVE); COLOR,URINE DARK YELLOW (YELLOW); KETONES,URINE 1+ mg/dL (NEGATIVE); LEUKOCYTE ESTERASE ,URINE TRACE (NEGATIVE); NITRITE, URINE NEGATIVE (NEGATIVE); PH,URINE 5.5 (5.0-8.0); PROTEIN,URINE 2+ mg/dl (NEGATIVE); UGLUCOSE NEGATIVE (NEGATIVE); UROBILINOGEN,URINE 0.2 EU/dL (0.2)
[2023-07-11 14:18] LABS: ADD URINE CULTURE YES; BACTERIA,URINE Moderate /HPF (None Seen); SQUAMOUS EPITHELIAL CELL,UR Moderate /HPF (None Seen)
[2023-07-11 14:21] LABS: URIC ACID CRYSTALS,URINE Moderate /HPF (None Seen); YEAST,URINE Moderate /HPF (None Seen)
[2023-07-11] MEDS: CEFEPIME 2 GM in IV D5W 100 ML IV SCH (14:44)
[2023-07-11] MEDS: PANTOPRAZOLE 40 MG/PACK PACK PO SCH (21:23)
[2023-07-11] MEDS: ATORVASTATIN 40 MG TABLET PO SCH (21:24)
[2023-07-12] VITALS (14 sets, daily range): BP systolic 141–154; BP diastolic 67–79; TEMP 96.5–207.9; O2SAT 92–100
[2023-07-12] MEDS: IPRATROPIUM NEB FS 0.5 MG/2.5 ML AMPUL.NEB NEB SCH ×4 (01:17→19:40)
[2023-07-12] MEDS: ALBUTEROL FS 2.5 MG/0.5 ML VIAL.NEB NEB SCH ×4 (01:17→19:40)
[2023-07-12 06:43] LABS: EOSINOPHILS # (AUTO) 0.1 K/uL (0.0-0.7); EOSINOPHILS % (AUTO) 0.5 % (0.0-6.0); HEMATOCRIT 32 % (33-45); HEMOGLOBIN 9.9 g/dL (11.5-14.8); LYMPHOCYTES # (AUTO) 1.1 K/uL (0.8-4.8); LYMPHOCYTES % (AUTO) 7.8 % (20.0-44.0); MEAN CORPUSCULAR HEMOGLOBIN 27 PG (26.0-33.0); MEAN CORPUSCULAR HGB CONC 31 g/dl (31.0-36.0); MEAN CORPUSCULAR VOLUME 87 fL (82-100); MONOCYTES # (AUTO) 1.1 K/uL (0.1-1.30); MONOCYTES % (AUTO) 8.1 % (2.0-12.0); NEUTROPHILS # (AUTO) 11.3 K/uL (1.8-8.9); NEUTROPHILS % (AUTO) 83.6 % (43.0-81.0); PLATELET COUNT (AUTO) 301 K/uL (150-450); RED CELL DISTRIBUTION WIDTH 19.7 % (11.5-15.0); WHITE BLOOD COUNT (AUTO) 13.5 K/uL (4.3-11.0)
[2023-07-12 07:25] LABS: CALCIUM, SERUM 8.5 mg/dL (8.5-10.1); CREATININE 1.1 mg/dL (0.6-1.3); MAGNESIUM 2.2 mg/dL (1.8-2.4); PHOSPHORUS 2.6 mg/dL (2.5-4.9); POTASSIUM 3.5 mmol/L (3.5-5.1)
[2023-07-12] MEDS: LEVOTHYROXINE SODIUM 137 MCG TABLET PO SCH (07:58)
[2023-07-12] MEDS: PANTOPRAZOLE 40 MG/PACK PACK PO SCH ×2 (08:21→21:51)
[2023-07-12] MEDS: BENZONATATE 100 MG CAPSULE PO SCH ×3 (08:21→18:02)
[2023-07-12] MEDS: METOPROLOL SUCCINATE 25 MG TAB.SR.24H PO SCH (08:21)
[2023-07-12] MEDS: DOCUSATE SODIUM 100 MG CAPSULE PO SCH ×2 (08:21→18:02)
[2023-07-12] MEDS: ENSURE ENLIVE 237 ML LIQUID (VANILLA) PO SCH ×3 (08:23→18:02)
[2023-07-12] MEDS ORDERED: methylPREDNISolone SOD SUCC 40 MG/ML VIAL IV SCH (09:00)
[2023-07-12] MEDS: CEFEPIME 2 GM in IV D5W 100 ML IV SCH (15:41)
[2023-07-12] MEDS: ATORVASTATIN 40 MG TABLET PO SCH (21:51)
[2023-07-13] VITALS (14 sets, daily range): BP systolic 120–143; BP diastolic 56–78; TEMP 97.9–98.7; O2SAT 93–99
[2023-07-13] MEDS: ALBUTEROL FS 2.5 MG/0.5 ML VIAL.NEB NEB SCH ×4 (01:15→20:11)
[2023-07-13] MEDS: IPRATROPIUM NEB FS 0.5 MG/2.5 ML AMPUL.NEB NEB SCH ×4 (01:15→20:10)
[2023-07-13 07:27] LABS: BASOPHILS % (AUTO) 0.1 % (0.0-2.0); EOSINOPHILS # (AUTO) 0.2 K/uL (0.0-0.7); EOSINOPHILS % (AUTO) 1.3 % (0.0-6.0); HEMATOCRIT 31 % (33-45); HEMOGLOBIN 9.8 g/dL (11.5-14.8); LYMPHOCYTES # (AUTO) 1.4 K/uL (0.8-4.8); LYMPHOCYTES % (AUTO) 9.9 % (20.0-44.0); MEAN CORPUSCULAR HEMOGLOBIN 26 PG (26.0-33.0); MEAN CORPUSCULAR HGB CONC 32 g/dl (31.0-36.0); MEAN CORPUSCULAR VOLUME 83 fL (82-100); MONOCYTES # (AUTO) 1.1 K/uL (0.1-1.30); MONOCYTES % (AUTO) 7.8 % (2.0-12.0); NEUTROPHILS # (AUTO) 11.2 K/uL (1.8-8.9); NEUTROPHILS % (AUTO) 80.9 % (43.0-81.0); PLATELET COUNT (AUTO) 298 K/uL (150-450); RED BLOOD CELL COUNT(AUTO) 3.72 MIL/uL (4.0-5.2); WHITE BLOOD COUNT (AUTO) 13.8 K/uL (4.3-11.0)
[2023-07-13 07:50] LABS: CALCIUM, SERUM 8.2 mg/dL (8.5-10.1); CREATININE 1.2 mg/dL (0.6-1.3); PHOSPHORUS 2.4 mg/dL (2.5-4.9); POTASSIUM 3.6 mmol/L (3.5-5.1)
[2023-07-13] MEDS: LEVOTHYROXINE SODIUM 137 MCG TABLET PO SCH (08:00)
[2023-07-13] MEDS: BENZONATATE 100 MG CAPSULE PO SCH ×3 (09:07→16:42)
[2023-07-13] MEDS: PANTOPRAZOLE 40 MG/PACK PACK PO SCH ×2 (09:07→20:52)
[2023-07-13] MEDS: ENSURE ENLIVE 237 ML LIQUID (VANILLA) PO SCH ×3 (09:07→16:42)
[2023-07-13] MEDS: DOCUSATE SODIUM 100 MG CAPSULE PO SCH ×2 (09:07→16:42)
[2023-07-13] MEDS: METOPROLOL SUCCINATE 25 MG TAB.SR.24H PO SCH (09:09)
[2023-07-13] MEDS: GUAIFENESIN/D-METHORPHAN HB 5 ML UDC PO PRN (11:14)
[2023-07-13] MEDS: CEFEPIME 2 GM in IV D5W 100 ML IV SCH (15:18)
[2023-07-13] MEDS ORDERED: K PHOS NEUTRAL 250 MG TABLET PO ONE (16:00)
[2023-07-13] MEDS: ATORVASTATIN 40 MG TABLET PO SCH (21:00)
[2023-07-14] VITALS (10 sets, daily range): BP systolic 113–137; BP diastolic 68–78; TEMP 97.5–98.4; O2SAT 95–99
[2023-07-14] MEDS: ALBUTEROL FS 2.5 MG/0.5 ML VIAL.NEB NEB SCH ×3 (01:47→13:23)
[2023-07-14] MEDS: IPRATROPIUM NEB FS 0.5 MG/2.5 ML AMPUL.NEB NEB SCH ×3 (01:47→13:23)
[2023-07-14 07:07] LABS: BASOPHILS % (AUTO) 0.4 % (0.0-2.0); EOSINOPHILS # (AUTO) 0.2 K/uL (0.0-0.7); EOSINOPHILS % (AUTO) 1.6 % (0.0-6.0); HEMATOCRIT 32 % (33-45); LYMPHOCYTES # (AUTO) 1.3 K/uL (0.8-4.8); LYMPHOCYTES % (AUTO) 11.2 % (20.0-44.0); MEAN CORPUSCULAR HEMOGLOBIN 27 PG (26.0-33.0); MEAN CORPUSCULAR HGB CONC 32 g/dl (31.0-36.0); MEAN CORPUSCULAR VOLUME 84 fL (82-100); MONOCYTES # (AUTO) 0.9 K/uL (0.1-1.30); MONOCYTES % (AUTO) 7.3 % (2.0-12.0); NEUTROPHILS # (AUTO) 9.5 K/uL (1.8-8.9); NEUTROPHILS % (AUTO) 79.5 % (43.0-81.0); PLATELET COUNT (AUTO) 251 K/uL (150-450); RED BLOOD CELL COUNT(AUTO) 3.78 MIL/uL (4.0-5.2); RED CELL DISTRIBUTION WIDTH 20.5 % (11.5-15.0)
[2023-07-14 07:46] LABS: CALCIUM, SERUM 7.9 mg/dL (8.5-10.1); CREATININE 1.2 mg/dL (0.6-1.3); MAGNESIUM 2.1 mg/dL (1.8-2.4); POTASSIUM 3.3 mmol/L (3.5-5.1)
[2023-07-14] MEDS: DOCUSATE SODIUM 100 MG CAPSULE PO SCH (09:03)
[2023-07-14] MEDS: LEVOTHYROXINE SODIUM 137 MCG TABLET PO SCH (09:03)
[2023-07-14] MEDS: PANTOPRAZOLE 40 MG/PACK PACK PO SCH (09:04)
[2023-07-14] MEDS: BENZONATATE 100 MG CAPSULE PO SCH ×2 (09:04→12:58)
[2023-07-14] MEDS: METOPROLOL SUCCINATE 25 MG TAB.SR.24H PO SCH (09:05)
[2023-07-14] MEDS: ENSURE ENLIVE 237 ML LIQUID (VANILLA) PO SCH ×2 (09:06→11:00)
[2023-07-14] MEDS ORDERED: POTASSIUM CHLORIDE 20 MEQ TAB.PRT.SR PO SCH (11:00)
== END 2023-07-14 15:37 | DRG 193 ==
LOC: ER 09:58 → TRANSITION 13:43 → TELE1 16:06 → TELE-TD 07-04 18:11 → ICU 07-04 22:46 → TELE1 07-08 17:16 → MEDSG1 07-14 10:25
PROVIDERS: ADMIT Internal Medicine; ATTEND Nurse Practitioner Family
PROC: 05HY33Z Insertion of Infusion Device into Upper Vein, Percutaneous Approach (ICD-10-PCS; 2023-07-04)
PROC: 5A09357 Assistance with Respiratory Ventilation, Less than 24 Consecutive Hours, Continuous Positive Airway Pressure (ICD-10-PCS; principal; 2023-07-05)
PROC: 30233N1 Transfusion of Nonautologous Red Blood Cells into Peripheral Vein, Percutaneous Approach (ICD-10-PCS; 2023-07-06)
DX: J15.9 Unspecified bacterial pneumonia (principal); G93.41 Metabolic encephalopathy; J96.01 Acute respiratory failure with hypoxia; I21.A1 Myocardial infarction type 2; N17.0 Acute kidney failure with tubular necrosis; J44.0 Chronic obstructive pulmonary disease with (acute) lower respiratory infection; I50.32 Chronic diastolic (congestive) heart failure; I13.0 Hypertensive heart and chronic kidney disease with heart failure and stage 1 through stage 4 chronic kidney disease, or unspecified chronic kidney disease; J44.1 Chronic obstructive pulmonary disease with (acute) exacerbation; J90 Pleural effusion, not elsewhere classified; E22.2 Syndrome of inappropriate secretion of antidiuretic hormone; K92.2 Gastrointestinal hemorrhage, unspecified; F05 Delirium due to known physiological condition; J12.9 Viral pneumonia, unspecified; N18.9 Chronic kidney disease, unspecified; D63.8 Anemia in other chronic diseases classified elsewhere; E03.9 Hypothyroidism, unspecified; E78.5 Hyperlipidemia, unspecified; F31.9 Bipolar disorder, unspecified; F41.9 Anxiety disorder, unspecified; K44.9 Diaphragmatic hernia without obstruction or gangrene; K57.30 Diverticulosis of large intestine without perforation or abscess without bleeding; M79.7 Fibromyalgia; Z87.891 Personal history of nicotine dependence; Z20.822 Contact with and (suspected) exposure to COVID-19; G47.33 Obstructive sleep apnea (adult) (pediatric); E66.9 Obesity, unspecified; Z68.30 Body mass index [BMI] 30.0-30.9, adult; D63.1 Anemia in chronic kidney disease; R33.9 Retention of urine, unspecified; R31.9 Hematuria, unspecified; E11.22 Type 2 diabetes mellitus with diabetic chronic kidney disease; E61.1 Iron deficiency; I25.10 Atherosclerotic heart disease of native coronary artery without angina pectoris; Z90.49 Acquired absence of other specified parts of digestive tract
CPT/HCPCS: 36410; 36415; 36600; 70450-TC; 71045-TC; 76770-TC; 80048-TC; 80053-TC; 80076-TC; 80202-TC; 81001; 82272-TC; 82550-TC; 82553; 82728-TC; 82803-TC; 83540-TC; 83605-TC; 83735-TC; 83880; 83970; 84100-TC; 84155; 84165; 84484-TC; 85025-TC; 85027-TC; 85730-TC; 86803; 86850-TC; 87040-TC; 87081-TC; 87086-TC; 87806; 92526; 92611-TC; 93307-TC; 94799-TC; 97110-TC; 97112-TC; 97116-TC; 97530-TC; 99082-TC; A4223; A9563; C9113; G0378; J0456; J0692; J0696; J1650; J1940; J2405; J2916; J2920; J2930; J3370; J3480; J3490; J7030; J7040; J7050; J7060; P9016